=== PATIENT | male | born 1980 | race Caucasian/White ===

== ENCOUNTER 2021-05-14 12:24 | Emergency (ER) | payer OTHER ==
[~2021-05-14] VITALS: Ht 167.6 cm; Wt 90.9 kg
[2021-05-14 12:36] VITALS: TEMP 98
[2021-05-14 15:28] LABS: COLLECTION METHOD CLEAN CATCH
[2021-05-14 15:28] LABS: BASO # 0.1 (0.0-0.2); BASO % 0.7 % (0.0-2.0); EOS # 0.1 (0.0-0.7); EOS % 1.5 % (0-4.0); GRAN # 5.2 (1.4-6.5); GRAN % 59.1 % (42.2-75.2); HEMATOCRIT 46.8 % (42.0-52.0); LYMPH # 2.4 (1.2-3.4); LYMPH % 27.4 % (20.0-51.0); MEAN CELL VOLUME 89 fl (80.0-100.0); MEAN CORPUSCULAR HEMOGLOBIN 30 pg (27.0-31.0); MEAN CORPUSCULAR HGB CONC 34 g/dl (33.0-37.0); MEAN PLATELET VOLUME 9.8 fl (7.4-10.4); PLATELET COUNT 243 K/mm3 (130-400); RED BLOOD COUNT 5.26 M/mm3 (4.20-5.60); REDCELL DISTRIBUTION WIDTH-CV 12.5 % (11.5-14.5)
[2021-05-14 15:39] LABS: PH 7 (5-8); SQUAMOUS EPITHELIAL None Seen /hpf; URINE APPEARANCE Clear; URINE BACTERIA None Seen /hpf; URINE BILIRUBIN Negative (NEGATIVE); URINE BLOOD Negative (NEGATIVE); URINE COLOR Yellow; URINE GLUCOSE Negative (NEGATIVE); URINE KETONE Negative (NEGATIVE); URINE LEUKOCYTE ESTERASE Negative (NEGATIVE); URINE NITRATE Negative (NEGATIVE); URINE PROTEIN(semi-quant) Negative (NEGATIVE); URINE RBC 0-2 /hpf; URINE UROBILINOGEN Negative (NEGATIVE)
[2021-05-14 15:43] LABS: ALANINE AMINOTRANSFERASE 19 U/L (4-49); ALBUMIN 4.7 gm/dL (3.5-5.0); ALKALINE PHOSPHATASE 71 U/L (50-136); ANION GAP 7 mmol/L (7-16); AST,SGOT 28 U/L (15-37); BILIRUBIN,TOTAL 0.6 mg/dL (0.0-1.0); BLOOD UREA NITROGEN 12 mg/dL (9-20); CALCIUM 9.7 mg/dL (8.4-10.2); CARBON DIOXIDE 24 mmol/L (22-30); CHLORIDE 109 mmol/L (98-107); CREATINE KINASE 181 U/L (55-170); GLUCOSE 90 mg/dL (74-106); LIPASE 76 U/L (23-300); SODIUM 140 mmol/L (137-145); TOTAL PROTEIN 8.4 gm/dL (6.4-8.2)
[2021-05-14 15:46] LABS: C-REACTIVE PROTEIN < 0.5 mg/dL (0.0-0.9)
[2021-05-14 16:09] LABS: TROPONIN-I < 0.012 ng/mL (0.000-0.035)
[2021-05-14] MEDS ORDERED: ATARAX 25MG25 MG/TAB PO (17:31)
[2021-05-14 18:03] VITALS: BP 132/80; PULSE 70
== END 2021-05-14 18:10 | disposition home or self-care (01) ==
LOC: COL.ER 12:24
PROVIDERS: Nurse Practitioner
DX: R00.2 Palpitations (principal); R07.89 Other chest pain; Z20.822 Contact with and (suspected) exposure to COVID-19
CPT/HCPCS: J2060; J7030